=== PATIENT | male | born 1980 | race Caucasian/White ===

== ENCOUNTER 2022-12-24 15:22 | Outpatient (RCR) | payer OTHER, SELFPAY | END 2023-04-02 23:59 | disposition home or self-care (01) | PROVIDERS: PCP Family Medicine; Visit Provider Family Medicine | DX: M17.11 Unilateral primary osteoarthritis, right knee (principal); M25.561 Pain in right knee; G89.29 Other chronic pain; Z51.89 Encounter for other specified aftercare | CPT/HCPCS: 97110; 97161 ==

== ENCOUNTER 2024-02-10 07:03 | Outpatient (CLI) | payer OTHER, SELFPAY ==
--- NOTE | 2024-02-10 07:15 | MR_ITS ---
[facility] [address] [facility] [address] Phone:?[phone] Fax:?[phone] Referring Physician Information: Blari Bustamante M.D. [address] [place] [address] Phone:?[phone] Fax:?[phone] Patient:?Danny Ann D.O.B:?1980 Sex:?Male Phone:?[phone] [facility] MRN:?[id number] Exam Date:?02/10/2024 EXAM: MRI OF THE RIGHT KNEE CLINICAL INFORMATION: The patient is a 43-year-old with right knee pain. Evaluate for medial meniscal tear. PRIOR SURGERY: None reported. COMPARISON STUDIES: Comparison is made to prior radiographs dated 02/01/2024. TECHNICAL INFORMATION: Imaging was performed on a high-field, 1.5 Cheryl MR scanner. Axial proton-density and fat-suppressed T2 imaging was produced in addition to sagittal proton-density and fat-suppressed proton-density imaging. Coronal proton-density and STIR imaging was also performed. FINDINGS: Articular/Extraarticular collections: Effusion: Mild. Popliteal cyst: Minimal. Loose bodies: None. Subcutaneous and extraarticular soft tissues: Within normal limits. Osseous structures: No evidence for marrow edema or cortical injury. No evidence for fracture or stress injury. No evidence for destructive bony lesion. Ligamentous structures: ACL: Intact and normal in appearance. PCL: Intact and normal in appearance. MCL: Intact and normal in appearance. LCL: Intact and normal in appearance. Posterolateral corner: Intact and normal in appearance. Posteromedial corner: No posteromedial corner soft tissue injury. Semimembranosus and pes anserine tendons demonstrate no tendinopathy or associated bursitis. Extensor mechanism/Patellar retinacular structures: Patellar tendon: Tendinosis and splitting of the proximal patellar tendon can be seen on sagittal series 6 image 15. There is no evidence for transverse tearing. The distal portion of the patellar tendon is within normal Quadriceps tendon: Intact, without tendinopathy. Retinacula: The medial and lateral retinacula are intact. The medial patellofemoral ligament is intact. Medial compartment: Medial meniscus: No evidence for medial meniscal tearing can be seen. There is no evidence for parameniscal cyst formation. No meniscocapsular separation injury is identified. Medial femoral condyle: No chondromalacia, chondral defect, or osteochondral abnormality. Medial tibial plateau: No chondromalacia, chondral defect, or osteochondral abnormality. Lateral compartment: Lateral meniscus: No evidence for lateral meniscal tearing is present. No evidence for parameniscal cyst formation can be seen. Lateral femoral condyle: No chondromalacia, chondral defect, or osteochondral abnormality. Lateral tibial plateau: No chondromalacia, chondral defect, or osteochondral abnormality. Patellofemoral compartment: Patella: Mild chondromalacia and fissuring of the medial patellar facet can be seen. No chondral injuries of the patellar apex or lateral facet are noted. Trochlea: No chondromalacia, chondral defect, or osteochondral abnormality. Neurovascular: No definite neurovascular abnormalities are seen. CONCLUSION: 1. No evidence for medial or lateral meniscal tearing can be seen. 2. Chondromalacia of the medial patellar facet. No full-thickness chondral defects about the knee are noted. 3. The proximal patellar tendinosis and splitting. 4. The cruciate and collateral ligaments appear intact. 5. No acute bony abnormalities are seen. 6. Mild knee joint effusion. [facility] Electronically signed on 02/10/2024 1:14:00 PM by Chris Pineda M.D.
--- NOTE | 2024-02-10 08:15 | MR_ITS ---
[facility] [address] [facility] [address] Phone:?[phone] Fax:?[phone] Referring Physician Information: Blair Bustamante M.D. [address] [place] [address] Phone:?[phone] Fax:?[phone] Patient:?Danny Ann D.O.B:?1980 Sex:?Male Phone:?[phone] [facility] MRN:?[id number] Exam Date:?02/10/2024 EXAM: MRI OF THE LEFT KNEE CLINICAL INFORMATION: The patient is a 43-year-old with left knee pain. Evaluate for medial meniscal tear. PRIOR SURGERY: None reported. COMPARISON STUDIES: Comparison is made to prior radiographs dated 02/01/2024. TECHNICAL INFORMATION: Imaging was performed on a high-field, 1.5 Cheryl MR scanner. Sagittal proton-density and fat-suppressed proton-density imaging was produced in addition to axial proton-density and fat-suppressed T2 imaging. Coronal proton-density and coronal STIR imaging was also performed. FINDINGS: Articular/Extraarticular collections: Effusion: Mild. Popliteal cyst: Minimal. Loose bodies: No well-defined intra-articular loose bodies are present. Subcutaneous and extraarticular soft tissues: Nonspecific subcutaneous soft tissue edema and/or hemorrhage can be seen along the anterior aspect of the knee on sagittal series 6 image 22. Osseous structures: No evidence for marrow edema or cortical injury. No evidence for fracture or stress injury. No evidence for destructive bony lesion. Ligamentous structures: ACL: Intact and normal in appearance. PCL: Intact and normal in appearance. MCL: Intact and normal in appearance. LCL: Intact and normal in appearance. Posterolateral corner: Intact and normal in appearance. Posteromedial corner: No posteromedial corner soft tissue injury. Semimembranosus and pes anserine tendons demonstrate no tendinopathy or associated bursitis. Extensor mechanism/Patellar retinacular structures: Patellar tendon: Intact, without tendinopathy. Quadriceps tendon: Intact, without tendinopathy. Retinacula: The medial and lateral retinacula are intact. The medial patellofemoral ligament is intact. Medial compartment: Medial meniscus: No evidence for medial meniscal tearing can be seen. There is no evidence for parameniscal cyst formation. No meniscocapsular separation injury is identified. Medial femoral condyle: No chondromalacia, chondral defect, or osteochondral abnormality. Medial tibial plateau: No chondromalacia, chondral defect, or osteochondral abnormality. Lateral compartment: Lateral meniscus: No evidence for lateral meniscal tearing is present. No evidence for parameniscal cyst formation can be seen. Lateral femoral condyle: No chondromalacia, chondral defect, or osteochondral abnormality. Lateral tibial plateau: No chondromalacia, chondral defect, or osteochondral abnormality. Patellofemoral compartment: Patella: Chondromalacia and fissuring of the medial patellar facet can be seen. There is no evidence for chondral defect. The patellar apex and lateral facet appear normal. Trochlea: No chondromalacia, chondral defect, or osteochondral abnormality. Neurovascular: No definite neurovascular abnormalities are seen. CONCLUSION: 1. Mild chondromalacia of the medial patellar facet. No full-thickness chondral defects about the knee are present. 2. No evidence for medial or lateral meniscal tearing is seen. 3. The cruciate and collateral ligaments appear intact. 4. No acute bony abnormalities are seen. 5. Mild knee joint effusion. AEC Electronically signed on 02/10/2024 1:18:00 PM by Chris Pineda M.D.
== END 2024-02-10 07:04 | disposition home or self-care (01) ==
LOC: MRI 07:04
PROVIDERS: PCP Family Medicine; Visit Provider Orthopaedic Surgery
DX: M25.562 Pain in left knee (principal); M22.42 Chondromalacia patellae, left knee; S83.502A Sprain of unspecified cruciate ligament of left knee, initial encounter; S83.402A Sprain of unspecified collateral ligament of left knee, initial encounter; M25.462 Effusion, left knee; M25.561 Pain in right knee; M22.41 Chondromalacia patellae, right knee; M25.461 Effusion, right knee
CPT/HCPCS: 73721